=== PATIENT | male | born 1950 | race Hispanic/Latino ===

== ENCOUNTER → 2018-12-09 | Outpatient (CLI) | payer OTHER ==
[~2018-12-09] MED LIST: PREVACID30 MG PO
--- NOTE | 2018-12-09 11:30 | Diagnostic Imaging Report ---
Exam: KUB - two views Clinical History: Right flank pain, query renal calculus Comparison: None. Findings: Bowel gas obscures visualization of the right kidney. No definite urinary stone. Phleboliths project over the right hemipelvis. There is a nonobstructive bowel gas pattern. No acute bony findings. Degenerative changes of lower lumbar spine. Impression: Bowel gas obscures visualization of the right kidney. No definite radiographic evidence of urinary stone. Signed by: Dr. Sarah Renteria MD on 12/09/2018 11:27 AM
== END ==
LOC: RAD 10:51
PROVIDERS: ATTEND Urology
DX: N20.0 Calculus of kidney (principal)
CPT/HCPCS: 74018

== ENCOUNTER → 2019-10-22 | Day surgery (SDC) | payer OTHER ==
[2019-10-21 13:31] LABS: BASOPHILS % 0.5 % (0.0-1.0); EOSINOPHILS # (AUTO) 0.1 (0.0-0.4); EOSINOPHILS % 1.5 % (0.0-6.0); HEMOGLOBIN 15.5 g/dL (14.0-18.0); LYMPHOCYTES # (AUTO) 3.5 (1.0-3.2); LYMPHOCYTES % 41.1 % (18.0-39.1); MEAN CORPUSCULAR HEMOGLOBIN 30.3 pg (28-32); MEAN CORPUSCULAR HGB CONC 34.4 g/dL (31-35); MEAN CORPUSCULAR VOLUME 87.9 fL (81-99); MONOCYTES # (AUTO) 0.8 (0.2-0.8); MONOCYTES % 8.9 % (4.4-11.3); NEUTROPHILS # (AUTO) 4.1 (2.1-6.9); NEUTROPHILS % 47.6 % (38.7-80.0); PLATELET COUNT 239 x10e3/uL (140-360); RED BLOOD COUNT 5.12 x10e6/uL (4.3-5.7); RED CELL DISTRIBUTION WIDTH 12.7 % (11.7-14.4)
--- NOTE | 2019-10-21 13:51 | Diagnostic Imaging Report ---
EXAMINATION: CHEST 2 VIEWS INDICATION: Pre-operative COMPARISON: None FINDINGS: LINES/TUBES:None LUNGS:The lungs are well-inflated. No focal consolidation or pulmonary edema. High density nodular opacities measure up to 8 mm at the left lung apex and 5 mm at the right lung apex and right mid lung, likely calcified granulomas. PLEURA:No pleural effusion or pneumothorax. MEDIASTINUM:The cardiomediastinal silhouette appears normal in size and shape. BONES/SOFT TISSUES:No acute osseous injury. ABDOMEN:No free air under the diaphragm. IMPRESSION: No focal pneumonia or pulmonary edema. Signed by: Rosie Velasquez MD on 10/21/2019 1:47 PM
[2019-10-21 13:57] LABS: ANION GAP 12.2 mmol/L (8-16); BLOOD UREA NITROGEN 15 mg/dL (7-26); BUN/CREATININE RATIO 14 (6-25); CALCIUM 9.8 mg/dL (8.4-10.2); CARBON DIOXIDE 28 mmol/L (22-29); CHLORIDE 102 mmol/L (98-107); CREATININE, SERUM 1.05 mg/dL (0.72-1.25); EST GLOMERULAR FILTRATION RATE > 60 ML/MIN (60-); GLUCOSE 94 mg/dL (74-118); POTASSIUM 4.2 mmol/L (3.5-5.1); SODIUM 138 mmol/L (136-145)
[~2019-10-22] MED LIST changes: +BUPIVACAINE 0.25%/EPI 30ML SDV INJ ONE; +FENTANYL CITRATE/PF 100MCG/2 ML INJ ONE; +LIDOCAINE HCL 1% LOCAL INJ 20 ML VIAL ONE; +LIDOCAINE HCL 2% LOCAL INJ 5 ML SDV VIAL INJ ONE; +MIDAZOLAM HCL 2 MG/2 ML VIAL ONE; +OMEPRAZOLE40 MG PO; +ONDANSETRON HCL INJ 2MG/ML 2ML 2 MG/ML VIAL ONE; +PROPOFOL IV EMULSION 10 MG/ML 20 ML VIAL ONE
--- OUTSIDE RECORDS SUMMARY | 2019-10-22 07:34 | XMS REPORT ---
Author Author [facility] Address Unknown Phone Unavailable Care Team Providers Care Electrotype Servicer Name Role Phone Yaay TRINIDAD Unavailable Unavailable HAMPEL, MICHAEL Unavailable Unavailable Problems This patient has no known problems. Allergies, Adverse Reactions, Alerts This patient has no known allergies or adverse reactions. Medications This patient has no known medications. Results Test Description Test Time Test Comments Text Results Atomic Results Result Comments CHEST 2 VIEWS 2019-10-21 13:43:00 [facility] [address] [address] Patient Name: ADRIENNE GRANADOS MR #: [id number] : 1950 Age/Sex: 69/M Req #: [id number] Adm Physician: Ordered by: VIVIENNE TRINIDAD MD Report #: [id number] Location: OR Room/Bed: Procedure: [id number] DX/CHEST 2 VIEWS Exam Date: 10/21/19 Exam Time: 1300 REPORT STATUS: Signed EXAMINATION: CHEST 2 VIEWS INDICATION: Pre-operative COMPARISON: None FINDINGS: LINES/TUBES:None LUNGS:The lungs are well-inflated. No focal consolidation or pulmonary edema. High density nodular opacities measure up to 8 mm at the left lung apex and 5 mm at the right lung apex and right mid lung, likely calcified granulomas. PLEURA:No pleural effusion or pneumothorax. MEDIASTINUM:The cardiomediastinal silhouette appears normal in size and shape. BONES/SOFT TISSUES:No acute osseous injury. ABDOMEN:No free air under the diaphragm. IMPRESSION: No focal pneumonia or pulmonary edema. Signed by: Lila Banks MD on 10/21/2019 1:47 PM Dictated By: LILA BANKS MD 46 Transcribed By: MARK on 10/21/19 134 COPY TO: VIVIENNE TRINIDAD MD ABDOMEN-1VIEW (KUB) 2018-12-09 11:23:00 [address] [address] Patient Name: ADRIENNE GRANADOS MR #: [id number] : 1950 Age/Sex: 68/M Req #: [id number] Adm Physician: Ordered by: MICHAEL BREEN MD Report #: [id number] Location: [facility] Room/Bed: Procedure: [id number] DX/ABDOMEN-1VIEW (KUB) Exam Date: 12/09/18 Exam Time: 1100 REPORT STATUS: Signed Exam: KUB - two views Clinical History: Right flank pain, query renal calculus Comparison: None. Findings: Bowel gas obscures visualization of the right kidney. No definite urinary stone. Phleboliths project over the right hemipelvis. There is a nonobstructive bowel gas pattern. No acute bony findings. Degenerative changes of lower lumbar spine. Impression: Bowel gas obscures visualization of the right kidney. No definite radiographic evidence of urinary stone. Signed by: Dr. Francine Madrigal MD on 12/09/2018 11:27 AM Dictated By: FRANCINE MADRIGAL MD 112 Transcribed By: YOVANNY CAMEJO on 12/09/181126 COPY TO: MICHAEL BREEN MD
[2019-10-22 10:45] VITALS: BP 120/67
--- NOTE | 2019-10-22 16:48 | Operative Report ---
DATE OF PROCEDURE: 10/22/2019 SURGEON: Darryn Guzman MD POSTOP DIAGNOSIS: Cystic mass of the right scapular area. POSTOPERATIVE DIAGNOSIS: Cystic mass of the right scapular area. OPERATION PERFORMED: Resection of cystic mass of the right scapular area. ANESTHESIA: Local, 1% Xylocaine and MAC. COMPLICATIONS: None. ESTIMATED BLOOD LOSS: Minimal. DESCRIPTION OF PROCEDURE: With the patient lying in bed in the supine position under good IV sedation, the back was prepped with Betadine solution and draped in the usual manner. The area surrounding the mass was then infiltrated with 1% Xylocaine solution. An elliptical incision was made to include the skin overlying the mass and incision was deepened through the subcutaneous tissue all the way down to the fascia. The mass was totally and completely resected without violating any of its borders. After this was done, the whole area was thoroughly irrigated. Perfect hemostasis was ascertained. The subcutaneous tissue was then reapproximated with interrupted sutures of 3-0 Vicryl and the skin was closed with interrupted vertical mattress sutures of 3-0 silk. A dressing was applied. The sponge, lap, and needle count was correct. The patient tolerated the procedure well and returned to the recovery room in stable condition. MD BRIGID May/HANNAHL /[id number]
== END | disposition home or self-care (01) ==
LOC: OR 07:31
PROVIDERS: ATTEND Surgery
DX: L72.0 Epidermal cyst (principal); K29.70 Gastritis, unspecified, without bleeding; K21.9 Gastro-esophageal reflux disease without esophagitis; I44.4 Left anterior fascicular block; Z01.810 Encounter for preprocedural cardiovascular examination; Z01.812 Encounter for preprocedural laboratory examination; Z01.818 Encounter for other preprocedural examination
CPT/HCPCS: 23071; 36415; 71046; 80048; 85025; 88304; 93005; J2001 ×2; J2250; J2405; J2704; J3010